=== PATIENT | male | born 1935 | race Caucasian/White ===

== ENCOUNTER → 2016-12-04 | Outpatient (CLI) | payer OTHER | LOC: BMCIMAGING 11:19 | PROVIDERS: ATTEND Internal Medicine Rheumatology | DX: M79.631 Pain in right forearm (principal); M79.89 Other specified soft tissue disorders ==

== ENCOUNTER → 2017-02-16 | Outpatient (CLI) | payer OTHER | LOC: FIMAGING 08:43 | PROVIDERS: ATTEND Otolaryngology | DX: J34.9 Unspecified disorder of nose and nasal sinuses (principal) ==

== ENCOUNTER → 2018-10-19 | Outpatient (CLI) | payer OTHER | LOC: BMCIMAGING 10:30 | PROVIDERS: ATTEND Emergency Medicine | DX: M11.221 Other chondrocalcinosis, right elbow (principal); M25.421 Effusion, right elbow ==

== ENCOUNTER 2018-11-01 07:09 | Emergency (ER) | payer OTHER ==
--- NOTE | 2018-11-01 07:38 | EDPHY ---
H & P Time Seen by Provider: 11/01/18 07:20 HPI/ROS: Chief complaint. Leg weakness HPI. 82-year-old male presents emergency department with slowly progressive leg weakness over the past several months. However yesterday increased weakness especially to the right leg. He has some sciatic type pain going down the right lower extremity. There has been no recent injury or fall. He does have low back pain especially with walking. No bowel or bladder symptoms. No fever, cough, chest pain, shortness of breath, abdominal pain, vomiting or diarrhea. No urinary symptoms. Patient had an MRI in 2016 which showed severe central canal stenosis and severe right foraminal stenosis. He has an appointment next week at [facility] but felt he could not wait because of increasing leg weakness. He normally walks using crutches ROS 10 systems were reviewed and negative with the exception of the elements mentioned in the history of present illness Past Medical/Surgical History: Hip and knee replacements. Melanoma. Diabetes, dyslipidemia, GERD, gout, prostate cancer Social History: , nonsmoker, no alcohol Smoking Status: Never smoked Physical Exam: General Appearance: Alert well-developed male mild distress vital signs significant for initial blood pressure 181/111 Eyes: Pupils equal and round no pallor or injection. ENT, Mouth: Mucous membranes are moist. Respiratory: There are no retractions, lungs are clear to auscultation. Cardiovascular: Regular rate and rhythm. Gastrointestinal: Abdomen is soft and nontender, no masses, bowel sounds normal. Neurological: Awake and alert, sensory and motor exams grossly normal. Straight leg raising normal on the left. Pain at 30 degrees on right. Deep tendon reflexes are symmetrical but decreased bilaterally. Great toe strength is normal. Normal sensation without saddle anesthesia. Leg strength appears normal Skin: Warm and dry, no rashes. Musculoskeletal: Neck is supple nontender. Mild tenderness to palpation lumbar spine Extremities symmetrical, full range of motion. Psychiatric: Patient is oriented X 3, there is no agitation. Constitutional: Initial Vital Signs Temperature (C) 36.4 C 11/01/18 07:14 Heart Rate 68 11/01/18 07:14 Respiratory Rate 18 11/01/18 07:14 Blood Pressure 181/111 H 11/01/18 07:14 O2 Sat (%) 97 11/01/18 07:14 O2 Delivery Mode Room Air Allergies/Adverse Reactions: No Known Allergies Allergy (Verified 11/01/18 07:13) Home Medications: Medication Instructions Recorded Ascorbic Acid [Vitamin C 500 mg 500 mg PO DAILY@12 12/08/13 (*)] Aspirin [Aspirin 81mg (OTC)] 81 mg PO DAILY@18 12/08/13 Beta-Carotene(A) W-C & E/Min 1 tab PO DAILY@12 12/08/13 [Ocuvite] Calcium Carbonate/Vitamin D3 1 each PO DAILY@12/08/13 [CALCIUM 600 + VIT D TABLET] Colchicine [Colchicine (*)] 0.6 mg PO DAILY 12/08/13 Cyanocobalamin (Vitamin B-12) 1,000 mcg SL DAILY@12/08/13 [Vitamin B-12] Herbals/Supplements -Info Only 1 ea PO DAILY 12/08/13 Lansoprazole [Prevacid] 15 mg PO DAILY 12/08/13 Metformin HCl [Metformin 1000 mg] 1,000 mg PO BID 12/08/13 Multivitamins [Multivitamin (*)] 1 each PO DAILY@12/08/13 Simvastatin [Zocor 20 mg] 20 mg PO DAILY18 12/08/13 Valsartan [Diovan (*)] 80 mg PO DAILY@18 12/08/13 sitaGLIPtin PHOSPHATE [Januvia 100 100 mg PO DAILY@12/08/13 MG (*)] Aspirin [Aspirin 81mg (*)] 81 mg PO BID #14 tab 12/31/13 Ferrous Sulfate [Ferrous Sulf 325 325 mg PO DAILY #30 tab 12/31/13 MG (*)] Magnesium Oxide 250 mg PO DAILY@18 #0 tablet 12/31/13 Ondansetron Odt [Zofran Odt 4 mg 4 - 8 mg PO Q6 PRN #14 tab 12/31/13 (*)] predniSONE 40 mg PO DAILY #8 tablet 11/01/18 Medical Decision Making - Diagnostics Imaging Results: Imaging Impressions Lumbar Spine MRI 11/01/18 07:33 Impression: 1. Severe levoscoliosis with multilevel moderate degenerative disk disease and severe bilateral facet arthropathy as described above. 2. L4-L5: Severe central canal stenosis and severe bilateral neural foraminal stenosis, secondary to moderate degenerative disk disease, central disk herniation and severe bilateral facet arthropathy. 3. L3-L4: Moderate to severe central canal stenosis and moderate right neural foraminal stenosis, secondary to moderate degenerative disk disease, right paramedian disk protrusion and severe bilateral facet arthropathy. 4. L5-S1: Severe left neural foraminal stenosis and moderate right neural foraminal stenosis, secondary to moderate degenerative disk disease, degenerative anterolisthesis and severe bilateral facet arthropathy. 5. Please see above findings at specific disk levels. Findings and recommendations discussed with Emergency Department physician, Dr. Korey Jarquin at 1000 hours on November 01, 2018. Final report concurs with initial preliminary interpretation. MRI reviewed by me and discussed with Radiology compared with previous MRI April 2016 shows worsening central canal stenosis at L3-4 and L4-5. Right neural foraminal stenosis at L5-S1 No evidence for cauda equina syndrome Procedures: Review of old records shows MRI of April 2016 showing severe central canal stenosis at L3-4, L4-5. Severe right neural foraminal stenosis at L5-S1 ED Course/Re-evaluation: Patient and his and I reviewed the MRI results. We discussed treatment plan. Patient is offered admission but feels comfortable going home. Importance of follow-up Neurosurgery. We discussed cauda equina syndrome and criteria for return. Differential Diagnosis: Patient has severe central canal stenosis and neural foraminal stenosis. I considered cauda equina syndrome. Patient certainly needs further neurosurgery evaluation and possible surgery. - Data Points Laboratory Results: Laboratory Results 11/01/18 07:37 11/01/18 07:37 11/01/18 11/01/18 11/01/18 09:25 07:37 07:37 WBC 10.62 10^3/uL H 10^3/uL (3.80-9.50) RBC 4.33 10^6/uL L 10^6/uL (4.40-6.38) Hgb 12.8 g/dL L g/dL (13.7-17.5) Hct 38.0 % L % (40.0-51.0) MCV 87.8 fL fL (81.5-99.8) MCH 29.6 pg pg (27.9-34.1) MCHC 33.7 g/dL g/dL (32.4-36.7) RDW 13.3 % % (11.5-15.2) Plt Count 375 10^3/uL 10^3/uL (150-400) MPV 7.9 fL L fL (8.7-11.7) Neut % (Auto) 76.1 % H % (39.3-74.2) Lymph % (Auto) 10.7 % L % (15.0-45.0) [place] % (Auto) 11.6 % % (4.5-13.0) Eos % (Auto) 0.8 % % (0.6-7.6) Baso % (Auto) 0.4 % % (0.3-1.7) Nucleat RBC Rel Count 0.0 % % (0.0-0.2) Absolute Neuts (auto) 8.09 10^3/uL H 10^3/uL (1.70-6.50) Absolute Lymphs (auto) 1.14 10^3/uL 10^3/uL (1.00-3.00) Absolute Monos (auto) 1.23 10^3/uL H 10^3/uL (0.30-0.80) Absolute Eos (auto) 0.08 10^3/uL 10^3/uL (0.03-0.40) Absolute Basos (auto) 0.04 10^3/uL 10^3/uL (0.02-0.10) Absolute Nucleated RBC 0.00 10^3/uL 10^3/uL (0-0.01) Immature Gran % 0.4 % % (0.0-1.1) Immature Gran # 0.04 10^3/uL 10^3/uL (0.00-0.10) Sodium 131 mEq/L L mEq/L (135-145) Potassium 4.4 mEq/L mEq/L (3.5-5.2) Chloride 94 mEq/L L mEq/L (97-110) Carbon Dioxide 23 mEq/l mEq/l (22-31) Anion Gap 14 mEq/L mEq/L (6-14) BUN 17 mg/dL mg/dL (7-23) Creatinine 0.8 mg/dL mg/dL (0.7-1.3) Estimated GFR > 60 Glucose 125 mg/dL H mg/dL (70-100) Calcium 9.0 mg/dL mg/dL (8.5-10.4) Urine Color PALE YELLOW Urine Appearance CLEAR Urine pH 5.0 (5.0-7.5) Ur Specific [place] 1.008 (1.002-1.030) Urine Protein NEGATIVE (NEGATIVE) Urine Ketones NEGATIVE (NEGATIVE) Urine Blood NEGATIVE (NEGATIVE) Urine Nitrate NEGATIVE (NEGATIVE) Urine Bilirubin NEGATIVE (NEGATIVE) Urine Urobilinogen NEGATIVE EU EU (0.2-1.0) Ur Leukocyte Esterase NEGATIVE (NEGATIVE) Urine RBC 1-3 /hpf /hpf (0-3) Urine WBC 1-3 /hpf /hpf (0-3) Ur Epithelial Cells NONE SEEN /lpf /lpf (NONE-1+) Urine Mucus TRACE /lpf /lpf (NONE-1+) Urine Glucose NEGATIVE (NEGATIVE) Departure - Departure Disposition: Home, Routine, Self-Care Clinical Impression: Low back pain Qualifiers: Chronicity: acute Back pain laterality: right Sciatica presence: with sciatica Sciatica laterality: sciatica of right side Qualified Code(s): M54.41 - Lumbago with sciatica, right side Condition: Good Instructions: Lumbar Radiculopathy (ED) Additional Instructions: Prednisone for the next 4 days. Return for worsening leg weakness or bowel or bladder symptoms Call Neurosurgery today to arrange follow-up appointment Referrals: Kyler Golden MD [Primary Care Provider] - As per Instructions Parul Chung DO [Doctor of Osteopathy] - 2-3 days, call for appt. Prescriptions: predniSONE 40 mg PO DAILY #8 tablet
[2018-11-01 07:47] LABS: PLATELET COUNT 375 10^3/uL (150-400)
[2018-11-01 11:47] VITALS: BP 153/91
== END 2018-11-01 11:46 | disposition home or self-care (01) ==
DX: M54.41 Lumbago with sciatica, right side (principal)

== ENCOUNTER → 2018-11-04 | Outpatient (CLI) | payer OTHER | LOC: FIMAGING 10:19 | PROVIDERS: ATTEND Neurological Surgery | DX: M41.84 Other forms of scoliosis, thoracic region (principal) ==

== ENCOUNTER → 2018-12-30 | Outpatient (CLI) | payer OTHER | LOC: FIMAGING 06:27 ==